=== PATIENT | female | born 1950 | race Caucasian/White ===

== ENCOUNTER → 2020-11-23 13:41 | Outpatient (BNVA) | payer MEDICARE, SELFPAY | PROVIDERS: Visit Provider Urology | DX: R31.29 Other microscopic hematuria (principal); N28.1 Cyst of kidney, acquired; N36.2 Urethral caruncle; N39.0 Urinary tract infection, site not specified; N95.2 Postmenopausal atrophic vaginitis; I10 Essential (primary) hypertension | CPT/HCPCS: 99212 ==

== ENCOUNTER → 2021-11-27 13:20 | Outpatient (BNVA) | payer MEDICARE, SELFPAY | PROVIDERS: PCP Internal Medicine; Visit Provider Urology | DX: R31.29 Other microscopic hematuria (principal); N36.2 Urethral caruncle | CPT/HCPCS: 99212 ==